=== PATIENT | female | born 1965 | race Caucasian/White ===

== ENCOUNTER 2024-03-06 11:57 | Outpatient (RCR) | payer BC, SELFPAY | END 2024-03-06 23:59 | disposition home or self-care (01) | LOC: RPT 11:57 | PROVIDERS: ATTENDING PHYSICIAN Orthopaedic Surgery; FAMILY PHYSICIAN Nurse Practitioner | DX: M17.11 Unilateral primary osteoarthritis, right knee (principal); M17.12 Unilateral primary osteoarthritis, left knee; Z73.6 Limitation of activities due to disability | CPT/HCPCS: 97110; 97140; 97161; 97530 ==

== ENCOUNTER 2024-04-06 09:03 | Outpatient (RCR) | payer BC, SELFPAY | END 2024-04-06 23:59 | disposition home or self-care (01) | LOC: RPT 09:03 | PROVIDERS: ATTENDING PHYSICIAN Orthopaedic Surgery; FAMILY PHYSICIAN Nurse Practitioner | DX: M17.11 Unilateral primary osteoarthritis, right knee (principal); M17.12 Unilateral primary osteoarthritis, left knee; Z73.6 Limitation of activities due to disability | CPT/HCPCS: 97110; 97112; 97140; 97530 ==

== ENCOUNTER 2024-04-23 10:07 | Outpatient (RCR) | payer BC, SELFPAY | END 2024-04-23 23:59 | disposition home or self-care (01) | LOC: RPT 10:07 | PROVIDERS: ATTENDING PHYSICIAN Orthopaedic Surgery; FAMILY PHYSICIAN Nurse Practitioner | DX: M17.0 Bilateral primary osteoarthritis of knee (principal); Z73.6 Limitation of activities due to disability; R26.2 Difficulty in walking, not elsewhere classified; M25.562 Pain in left knee; M25.561 Pain in right knee | CPT/HCPCS: 97110; 97112; 97140 ==

== ENCOUNTER → 2024-05-22 08:13 | Outpatient (REF) | payer BC, SELFPAY | LOC: HWRAD 08:13 | PROVIDERS: ATTENDING PHYSICIAN Obstetrics & Gynecology Gynecology; FAMILY PHYSICIAN Nurse Practitioner | DX: Z78.0 Asymptomatic menopausal state (principal); Z12.31 Encounter for screening mammogram for malignant neoplasm of breast | CPT/HCPCS: 77063; 77067; 77080 ==

== ENCOUNTER 2024-05-25 13:18 | Outpatient (RCR) | payer BC, SELFPAY | END 2024-05-25 23:59 | disposition home or self-care (01) | LOC: RPT 13:18 | PROVIDERS: ATTENDING PHYSICIAN Orthopaedic Surgery; FAMILY PHYSICIAN Nurse Practitioner | DX: M17.0 Bilateral primary osteoarthritis of knee (principal); Z73.6 Limitation of activities due to disability; R26.2 Difficulty in walking, not elsewhere classified; M25.562 Pain in left knee; M25.561 Pain in right knee | CPT/HCPCS: 97110; 97140 ==

== ENCOUNTER 2024-06-21 16:03 | Outpatient (RCR) | payer BC, SELFPAY | END 2024-06-21 23:59 | disposition home or self-care (01) | LOC: RPT 16:03 | PROVIDERS: ATTENDING PHYSICIAN Orthopaedic Surgery; FAMILY PHYSICIAN Nurse Practitioner | DX: M17.0 Bilateral primary osteoarthritis of knee (principal); Z73.6 Limitation of activities due to disability; R26.2 Difficulty in walking, not elsewhere classified; M25.562 Pain in left knee; M25.561 Pain in right knee | CPT/HCPCS: 97110; 97112 ==

== ENCOUNTER 2024-08-24 12:29 | Emergency (ER) | payer BC, SELFPAY ==
[2024-08-24 12:45] VITALS: BP 146/104
[2024-08-24 13:12] LABS: % Eosinophils 2.2 % (0-6); % Immature Granulocytes 0.4 % (0-0.5); % Lymphocytes 24.8 % (20.5-51.1); % Monocytes 8.3 % (1.7-9.3); % Neutrophils 63.3 % (42.2-75.2); Absolute Basophils 0.1 10^3/uL (0-0.2); Absolute Eosinophils 0.2 10^3/uL (0-0.7); Absolute Lymphocytes 1.8 10^3/uL (1.2-3.4); Absolute Monocytes 0.6 10^3/uL (0.1-0.6); Absolute Neutrophils 4.6 10^3/uL (1.4-6.5); Hematocrit 43.3 % (37.0-47.0); Hemoglobin 14.3 g/dL (12.0-16.0); Mean Corpuscular Hgb 31.2 pg (27.0-31.0); Mean Corpuscular Volume 94.5 fL (81.0-99.0); Mean Platelet Volume 10.9 fL (7.4-10.4); Nucleated Red Blood Cells % 0 %; Platelet Count 265 10^3/uL (130-400); Red Blood Cell Count 4.58 10^6/uL (4.20-5.40); Red Cell Dist. Width 12.6 % (11.5-14.5); White Blood Cell Count 7.2 10^3/uL (4.8-10.8)
[2024-08-24 13:17] LABS: Urine Albumin Negative (Neg - Trace); Urine Bilirubin Negative (Negative); Urine Character Clear (Clear); Urine Color Yellow; Urine Glucose Negative (Negative); Urine Ketone Negative (Negative); Urine Leukocyte Trace (Negative); Urine Nitrite Negative (Negative); Urine Occult Blood Negative (Negative); Urine Specific Gravity 1.015 (<1.030); Urine Urobilinogen Negative (Neg - 1+)
[2024-08-24 13:25] LABS: ALT (SGPT) 50 U/L (0-35); AST (SGOT) 35 U/L (14-36); Albumin 4.6 g/dl (3.5-5.0); Alkaline Phosphatase 94 U/L (38-126); Blood Urea Nitrogen 16 mg/dl (7-17); Calcium 9.7 mg/dl (8.4-10.2); Carbon Dioxide 30 mmol/L (22-30); Chloride 101 mmol/L (98-107); Glucose 117 mg/dl (70-99); Lipase 57 U/L (23-300); Potassium 4.6 mmol/L (3.5-5.1); Sodium 139 mmol/L (135-145); Total Bilirubin 0.5 mg/dl (0.2-1.3); Total Protein 7.3 g/dl (6.3-8.2); eGFR > 60.00
[2024-08-24 14:39] LABS: Urine Mucus Few
[2024-08-24 14:40] LABS: Urine Amorphous Seen; Urine Squamous Cell 0-2 /LPF (Few); Urine Urothelial Cell 0-2 /LPF (FEW)
[2024-08-24 14:41] LABS: Urine Red Blood Cell 0-2 /HPF (0-2); Urine White Cell 0-2 /HPF (0-5)
[2024-08-24 14:53] VITALS: BMI 30.4
--- NOTE | 2024-08-24 15:16 | ED.GENMED ---
History of Present Illness
General
Chief Complaint: Abdominal Pain
Source: patient
Exam Limitations: none
Time Seen by Provider: 08/24/24 15:14
Nursing documentation reviewed up to this point in time: agreed with
History of Present Illness
History of Present Illness:
59-year-old female history of , cholecystectomy presents stating she awakened at 9 AM today with pain in her right side that got worse as the day wore on. She took Gas-X with no relief. She denies N/V/D/C. She had a good bowel movement
this a.m. She denies fever or chills. She states since she has been waiting the pain has totally subsided.
Past History
Past History
ED Past Medical History: None
ED Past Surgical History: Cholecystectomy and
Social History
Tobacco: Non-smoker
Alcohol: None
Personal:
Living: with family
Employment: Employed
Review of Systems
Review of Systems
Allergies reviewed?: Yes
All Other Systems: ROS reviewed and negative except as documented in HPI and ROS
Constitutional: Denies fever
Respiratory: Denies trouble breathing
Cardiac: Denies chest pain
ABD/GI: Reports abdominal pain; Denies nausea, vomiting, diarrhea, constipated, bloody stools, black stools or anorexia
: Denies dysuria, frequency, difficulty voiding or urgency
Musculoskeletal: Reports no symptoms
Skin: Reports no symptoms
Neurological: Reports no symptoms
Phy Exam
Physical Exam
Physical Exam:
GENERAL: No acute distress. A&Ox3.
CONSTITUTIONAL: Afebrile.
EYES: clear, conjunctivae normal
ENMT: moist mucus membranes, Pharynx nl
RESPIRATORY: Regular respirations, nonlabored, lungs clear.
CARDIOVASCULAR: Regular rate and rhythm, no murmurs, no rubs.
GI: Soft, nontender, normal BS
MUSCULOSKELETAL: Moves with ease. Well perfused.
SKIN: Warm, dry, pink
PSYCH: Normal mood and affect. Well kept, interactive and appropriate
NEUROLOGIC: Awake, alert and oriented. No focal neurological deficits
Course
Orders/Labs/Results
Orders:
Orders
08/24/24 13:04
Complete Blood Count/With Diff Urgent
Comprehensive Metabolic Panel Urgent
Lipase Urgent
Urinalysis Reflex To Culture Urgent
Date Specimen was Collected: 08/24/24
Time Specimen was Collected: 12:50
Urine Microscopic Reflex Cult Urgent
Abnormal Lab Results
08/24/24
13:04
MCH 31.2 H pg
(27.0-31.0)
MPV 10.9 H fL
(7.4-10.4)
Glucose 117 H mg/dl
(70-99)
ALT 50 H U/L
(0-35)
Leukocyte Esterase Rfl Trace A
(Negative)
08/24/24 13:04
08/24/24 13:04
Vital Signs
Initial and Last Documented VS:
Initial Vital Signs
Temp Pulse Resp BP Pulse Ox
98.3 F 86 16 146/104 100
08/24/24 12:45 08/24/24 12:45 08/24/24 12:45 08/24/24 12:45 08/24/24 12:45
Last Documented Vital Signs
Temp Pulse Resp BP Pulse Ox
98.3 F 86 16 146/104 100
08/24/24 12:45 08/24/24 12:45 08/24/24 12:45 08/24/24 12:45 08/24/24 12:45
MDM/Problems Addressed
Differential Diagnosis Includes:
appendicitis, gas pains, IBS
MDM/Problems Addressed:
59-year-old female history of , cholecystectomy presents stating she awakened at 9 AM today with pain in her right side that got worse as the day wore on. She took Gas-X with no relief. She denies N/V/D/C. She had a good bowel movement
this a.m. She denies fever or chills. She states since she has been waiting the pain has totally subsided.
Afebrile, NAD
Abdomen totally benign at this point
Blood work and urine are normal
Patient states she is totally comfortable going home with no further evaluation/imaging
Return instructions discussed
BP recheck 132/80
*Critical Care Note
Total Time (30-74mins, 75-104mins- exclusive of procedures): Not Applicable
ED Attending Note
-
Portions of this chart may have been created with voice recognition software.� Occasional wrong word or��sound alike� substitutions may have occurred due to the inherent limitations of voice recognition software.
Discharge Plan
Departure
Patient Disposition: Home (Routine Discharge)
Date of Disposition: 08/24/24
Time of Disposition: 15:21
Patient with high blood pressure during this ER visit?: No
Condition: Good
Discharge Problem:
Abdominal pain
Instructions: Abdominal Pain
Referrals:
Emerald Arroyo CRNP [Family Provider] - As needed
Activity Restrictions/Additional Instructions:
As we discussed, nothing in your workup and exam here today shows anything worrisome.
Return here at any time if symptoms worsen or anything worries you.
Interventions
Interventions:
*Risk Screen - Suicide Last Done: 08/24/24 12:45
*General Assessment Last Done: 08/24/24 12:45
*Neglect/Abuse Screening Last Done: 08/24/24 12:45
ED- Fall Risk Assessment Last Done: 08/24/24 15:42
*ED COVID-19 Vaccine History Last Done: 08/24/24 15:42
*Nursing Disposition Last Done: 08/24/24 15:42
AV-Xrjgxp-Bxdbayvojf Assessment Last Done: 08/24/24 15:43
Discharge Date and Time
Discharge Date/Time: 08/24/24 15:43
Print Language: ICELANDIC
== END 2024-08-24 15:43 | disposition home or self-care (01) ==
LOC: EMR 12:29
PROVIDERS: Emergency Medicine; EMERGENCY PHYSICIAN Emergency Medicine; FAMILY PHYSICIAN Nurse Practitioner
DX: R10.9 Unspecified abdominal pain (principal); Z90.49 Acquired absence of other specified parts of digestive tract
CPT/HCPCS: 99283; 80053; 81003; 81015; 83690; 85025

== ENCOUNTER → 2025-06-25 08:13 | Outpatient (REF) | payer BC, SELFPAY | LOC: HWWDC 08:13 | PROVIDERS: ATTENDING PHYSICIAN Obstetrics & Gynecology Gynecology; FAMILY PHYSICIAN Nurse Practitioner | DX: Z12.31 Encounter for screening mammogram for malignant neoplasm of breast (principal) | CPT/HCPCS: 77063; 77067 ==